=== PATIENT | male | born 1955 | race Caucasian/White ===

== ENCOUNTER 2018-03-21 16:27 | Emergency (ER) | payer OTHER ==
--- NOTE | 2018-03-21 16:39 | EDPHY ---
H & P Time Seen by Provider: 03/21/18 16:35 HPI/ROS: CHIEF COMPLAINT: Confusion HISTORY OF PRESENT ILLNESS: 63-year-old male with atrial fibrillation on Pradaxa presents with difficulty with word-finding confusion. He was with his in a movie theater. As the movie was finishing, he started to feel anxious and confused. After the movie finished, he stood up, tried to talk with his , but was unable to find the correct words. He became increasingly anxious and confused. The word-finding difficulty has resolved. History of 2 prior similar episodes. He has a slightly abnormal gait at baseline and this has not changed since onset of the confusion. No new weakness or numbness. No headache and no recent head trauma. REVIEW OF SYSTEMS: complete 10 point ROS reviewed and is negative except for the noted elements in the HPI - Medical/Surgical History Other PMH: Atrial fibrillation - Social History Alcohol Use: Sober Drug Use: None Additional Social History: - Physical Exam Exam: General Appearance: Alert, anxious, speech is clear Eyes: Pupils equal and round, no conjunctival pallor or injection ENT, Mouth: Mucous membranes moist Neck: Normal inspection Respiratory: Lungs are clear to auscultation Cardiovascular: Irregularly irregular rate and rhythm Gastrointestinal: Abdomen is soft and nontender Neurological: Alert, oriented to person place and time, cranial nerves 2-12 intact, motor 5/5 and symmetric, sensory grossly intact, gait not assessed Skin: Warm and dry Extremities: normal inspection Psychiatric: Mood and affect normal Constitutional: Initial Vital Signs Temperature (C) 36.8 C 03/21/18 16:32 Heart Rate 96 03/21/18 16:32 Respiratory Rate 18 03/21/18 16:32 Blood Pressure 164/95 H 03/21/18 16:32 O2 Sat (%) 98 03/21/18 16:32 O2 Delivery Mode Room Air Allergies/Adverse Reactions: phenobarbital Allergy (Verified 03/21/18 17:08) Home Medications: Medication Instructions Recorded Beclomethasone Qvar 80 [Qvar 80 2 inh IH BID 03/21/18 Redihaler (*)] Cholecalciferol Vit D3 [Vitamin D3 1,000 units PO DAILY 03/21/18 (*)] Dabigatran Etexilate Mesyl 150 mg PO BID 03/21/18 [Pradaxa 150 MG (*)] Diltiazem HCl [Diltiazem 24Hr Cd] 120 mg PO DAILY 03/21/18 Omeprazole 20 mg PO BID 03/21/18 Vitamin B Complex [Vitamin B 1 each PO DAILY 03/21/18 Complex (OTC)] Medical Decision Making - Diagnostics EKG Interpretation: EKG interpreted by me reveals atrial fibrillation, ventricular rate 90, abnormal R-wave progression, LVH. Interpretation: Abnormal EKG Imaging Results: Imaging Impressions Head CT 03/21/18 16:30 Impression: There is no acute intracranial abnormality identified on this unenhanced CT evaluation. If there is further clinical concern regarding the patient's symptoms, MR imaging is suggested, if not otherwise contraindicated. Findings were discussed with MARIA M YOUNG MD at 16:52, on 03/21/2018. Imaging: Discussed imaging studies w/ piping engineer Radiologist ED Course/Re-evaluation: This patient presents with acute confusion. A stroke alert was called in ED triage. I met this patient on arrival to a room. NIH stroke scale 0. Stat EKG reveals atrial fibrillation with a controlled rate and no evidence of ischemia. CT scan of the brain reveals atrophy, without evidence of hemorrhage or infarct. 1740: Neuro exam normal, speech is fluent, anxiety has resolved. d/w pt and , episode concerning for TIA. Advise admission for further evaluation. [facility] contacted for transfer for further eval of TIA. Transfer accepted by Dr. Osullivan to [facility]. EMTALA completed. Differential Diagnosis: Altered mental status including but not limited to hypoglycemia, infectious process, electrolyte abnormality, head injury, CVA, and intoxicants. - Data Points Laboratory Results: Laboratory Results 03/21/18 16:40 03/21/18 16:40 03/21/18 03/21/18 03/21/18 16:40 16:40 16:40 WBC 6.50 10^3/uL 10^3/uL (3.80-9.50) RBC 4.43 10^6/uL 10^6/uL (4.40-6.38) Hgb 15.2 g/dL g/dL (13.7-17.5) POC Hgb Hct 41.8 % % (40.0-51.0) POC Hct MCV 94.4 fL fL (81.5-99.8) MCH 34.3 pg H pg (27.9-34.1) MCHC 36.4 g/dL g/dL (32.4-36.7) RDW 12.6 % % (11.5-15.2) Plt Count 175 10^3/uL 10^3/uL (150-400) MPV 10.1 fL fL (8.7-11.7) Neut % (Auto) 44.7 % % (39.3-74.2) Lymph % (Auto) 44.2 % % (15.0-45.0) Hood % (Auto) 9.7 % % (4.5-13.0) Eos % (Auto) 0.6 % % (0.6-7.6) Baso % (Auto) 0.5 % % (0.3-1.7) Nucleat RBC Rel Count 0.0 % % (0.0-0.2) Absolute Neuts (auto) 2.91 10^3/uL 10^3/uL (1.70-6.50) Absolute Lymphs (auto) 2.87 10^3/uL 10^3/uL (1.00-3.00) Absolute Monos (auto) 0.63 10^3/uL 10^3/uL (0.30-0.80) Absolute Eos (auto) 0.04 10^3/uL 10^3/uL (0.03-0.40) Absolute Basos (auto) 0.03 10^3/uL 10^3/uL (0.02-0.10) Absolute Nucleated RBC 0.00 10^3/uL 10^3/uL (0-0.01) Immature Gran % 0.3 % % (0.0-1.1) Immature Gran # 0.02 10^3/uL 10^3/uL (0.00-0.10) PT 15.0 SEC SEC (12.0-15.0) INR 1.16 (0.83-1.16) POC Sodium Sodium 131 mEq/L L mEq/L (135-145) POC Potassium Potassium 4.1 mEq/L mEq/L (3.5-5.2) POC Chloride Chloride 99 mEq/L mEq/L (97-110) Carbon Dioxide 23 mEq/l mEq/l (22-31) Anion Gap 9 mEq/L mEq/L (6-14) POC BUN BUN 11 mg/dL mg/dL (7-23) Creatinine 0.6 mg/dL L mg/dL (0.7-1.3) POC Creatinine Estimated GFR > 60 Glucose 96 mg/dL mg/dL (70-100) POC Glucose Calcium 9.0 mg/dL mg/dL (8.5-10.4) POC Troponin I 03/21/18 03/21/18 16:37 16:36 WBC RBC Hgb POC Hgb 15.6 gm/dL gm/dL (13.7-17.5) Hct POC Hct 46 % % (40-51) MCV MCH MCHC RDW Plt Count MPV Neut % (Auto) Lymph % (Auto) Hood % (Auto) Eos % (Auto) Baso % (Auto) Nucleat RBC Rel Count Absolute Neuts (auto) Absolute Lymphs (auto) Absolute Monos (auto) Absolute Eos (auto) Absolute Basos (auto) Absolute Nucleated RBC Immature Gran % Immature Gran # PT INR POC Sodium 134 mEq/L L mEq/L (135-145) Sodium POC Potassium 3.7 mEq/L mEq/L (3.3-5.0) Potassium POC Chloride 97 mEq/L mEq/L (97-110) Chloride Carbon Dioxide Anion Gap POC BUN 9 mg/dL mg/dL (7-23) BUN Creatinine POC Creatinine 0.6 mg/dL L mg/dL (0.7-1.3) Estimated GFR Glucose POC Glucose 96 mg/dL mg/dL (70-100) Calcium POC Troponin I 0.01 ng/mL ng/mL (0.00-0.08) Point of Care Test Results: Chemistry 03/21/18 03/21/18 16:37 16:36 POC Sodium 134 mEq/L L mEq/L (135-145) POC Potassium 3.7 mEq/L mEq/L (3.3-5.0) POC Chloride 97 mEq/L mEq/L (97-110) POC BUN 9 mg/dL mg/dL (7-23) POC Creatinine 0.6 mg/dL L mg/dL (0.7-1.3) POC Glucose 96 mg/dL mg/dL (70-100) POC Troponin I 0.01 ng/mL ng/mL (0.00-0.08) ISTAT H&H 03/21/18 16:37 POC Hgb 15.6 gm/dL gm/dL (13.7-17.5) POC Hct 46 % % (40-51) Departure - Departure Disposition: Acute Care Hospital Not [facility] Clinical Impression: Transient cerebral ischemia Qualifiers: Transient cerebral ischemia type: carotid artery syndrome (hemispheric) Qualified Code(s): G45.1 - Carotid artery syndrome (hemispheric) Condition: Fair Referrals: Patient,NotPresent [Unknown] - As per Instructions
[2018-03-21 16:47] LABS: PLATELET COUNT 175 10^3/uL (150-400)
[2018-03-21 17:00] LABS: INR 1.16 (0.83-1.16)
[2018-03-21 18:27] VITALS: BP 118/85
--- NOTE | 2018-03-21 21:02 | CPEKG ---
Test Reason : OPEN Blood Pressure : / mmHG Vent. Rate : 090 BPM Atrial Rate : 146 BPM P-R Int : 156 ms QRS Dur : 094 ms QT Int : 369 ms P-R-T Axes : 000 -35 123 degrees QTc Int : 452 ms Atrial fibrillation Abnormal R-wave progression, early transition LVH with secondary repolarization abnormality Confirmed by Dee Dee Fernandez ([id number]) on 03/21/2018 9:02:16 PM Referred By: Confirmed By:Dee Dee Fernandez
== END 2018-03-21 19:14 | disposition short-term general hospital (02) ==
DX: G45.1 Carotid artery syndrome (hemispheric) (principal); I48.91 Unspecified atrial fibrillation; Z79.01 Long term (current) use of anticoagulants
CPT/HCPCS: 82435-PO; 82565-PO; 82947-PO; 84132-PO; 84295-PO; 84484-ER; 84520-PO; 85014-ER